=== PATIENT | male | born 1985 | race Caucasian/White ===

== ENCOUNTER 2021-08-26 10:19 | Observation (INO) | payer OTHER ==
[~2021-08-26] VITALS: Ht 182.9 cm; Wt 65.8 kg
[~2021-08-26 10:19] MED LIST: NAPROSYN375 MG PO
[2021-08-26 10:20] VITALS: BP 127/82
[2021-08-26 10:40] LABS: URINE BILIRUBIN NEGATIVE (Negative); URINE BLOOD NEGATIVE (Negative); URINE CLARITY CLEAR; URINE COLOR YELLOW; URINE GLUCOSE-RANDOM* NEGATIVE (Negative); URINE KETONES NEGATIVE (Negative); URINE LEUKOCYTES-REFLEX NEGATIVE (Negative); URINE NITRITE-REFLEX NEGATIVE (Negative); URINE PROTEIN (DIPSTICK) NEGATIVE (Negative); URINE SPECIFIC GRAVITY >= 1.030 (1.005-1.035); URINE UROBILINOGEN 0.2 E.U./dl (0.2-1.0)
[2021-08-26 10:41] LABS: ABSOLUTE NEUTROPHILS 5.2 thou/uL (1.4-8.2); BASOPHILS 0.7 % (0.0-2.0); EOSINOPHILS 1.2 % (0.0-3.0); HEMATOCRIT 40.3 % (42.0-52.0); HEMOGLOBIN 13.7 gm/dL (14.0-18.0); LYMPHOCYTES 17.3 % (24.0-44.0); MCH 32.3 pg (26.0-34.0); MONOCYTES 10.1 % (1.0-8.0); PLATELET COUNT 212 thou/uL (150-400); POLYS 70.7 % (36.0-66.0); RBC 4.24 mil/uL (4.50-6.00); RDW 12.6 % (10.5-14.5); WBC 7.3 thou/uL (4.0-11.0)
[2021-08-26 10:49] LABS: CALCIUM 8.9 mg/dL (8.5-10.1); POTASSIUM 4.2 mmol/L (3.5-5.1)
[2021-08-26 10:55] LABS: ALBUMIN 3.7 g/dL (3.4-5.0); TOTAL BILIRUBIN 0.3 mg/dL (0.2-1.0); TOTAL PROTEIN 6.7 g/dL (6.4-8.2)
[2021-08-26 12:32] VITALS: BP 117/76; BP 119/81
[2021-08-26 13:22] VITALS: BP 119/76
[2021-08-26 16:10] VITALS: BP 128/78
--- NOTE | 2021-08-26 16:13 | NUR ---
ADMISSION: PT ADMITTED TO ROOM 349, ALERT AND ORIENTED X4, MED/SURG STATUS. ON ROOM AIR, NO SIGNS OF DISTRESS NOTED. VITAL SIGNS STABLE. ASSESSMENT AND ADMISSION COMPLETED. PT COMPLAINS OF LEFT UPPER ABDOMEN PAIN, RATES PAIN AT 3/10, TOLERABLE. CONSENTS SIGNED BY PT. UP AD CAROLYN TO BATHROOM. NO SKIN ISSUES, SKIN INTACT. CONTINUE TO WEAR HIS JEANS AND SHOES, STATES HE IS OKAY WEARING THEM FOR NOW. CALL LIGHT AND TABLE WITHIN REACH. DENIES ANY NEEDS AT MOMENT. WILL CONTINUE TO MONITOR.
[2021-08-26 19:03] VITALS: BP 119/83
[2021-08-27 02:32] VITALS: BP 123/84
[2021-08-27 07:06] VITALS: BP 125/65
[2021-08-27 12:35] VITALS: BP 125/65
--- NOTE | 2021-08-27 12:38 | NUR ---
INITIAL ASSESSMENT: Received consult. Pt was admitted from home due to pancreatitis. Pt placed in Enhanced Isolation after having positive COVID test. Per chart, pt has received the Pfizer COVID vaccination. Pt is afebrile and on room air. Pt with hx of ETOH use. Pt may discharge home later today if able to tolerate lunch. Pt listed as patient pay. Pt had states to [employer] that he has insurance through his employer. [facility] placed call to pt's room. No answer. [facility] placed call to listed contact number for pt ([phone]). This number is not the correct number for pt. Plan is for pt to discharge home when medically stable. [facility]YNA placed contact info for [employer] in pt's discharge summary for pt to call to provide insurance info. No discharge needs identified at this time. [facility] is available to assist should needs arise.
[2021-08-27 15:10] VITALS: BP 114/71
== END 2021-08-27 16:50 | disposition home or self-care (01) ==
LOC: ER 10:19 → EROBS 11:43 → 3W 11:43
PROVIDERS: Emergency Medicine; ADMIT Hospitalist; ATTEND Hospitalist
DX: U07.1 COVID-19 (principal); K85.90 Acute pancreatitis without necrosis or infection, unspecified; K52.9 Noninfective gastroenteritis and colitis, unspecified; R74.8 Abnormal levels of other serum enzymes; F17.210 Nicotine dependence, cigarettes, uncomplicated; Z79.899 Other long term (current) drug therapy
CPT/HCPCS: 10779